=== PATIENT | female | born 1945 | race Caucasian/White ===

== ENCOUNTER → 2017-05-05 | Outpatient (CLI) | payer OTHER ==
--- NOTE | 2017-05-06 14:12 | MAMMOGRAPHY REPORT ---
BILATERAL DIGITAL SCREENING MAMMOGRAM WITH CAD: 05/05/2017 CLINICAL HISTORY: Routine screening. TECHNIQUE: Current study was also evaluated with a Computer Aided Detection (CAD) system. Bilateral CC and MLO views were obtained. COMPARISON: Comparison is made to exams dated: 04/29/2016 mammogram, 04/25/2015 mammogram, 04/24/2014 m ammogram, 04/23/2013 mammogram, 04/20/2012 mammogram, and 04/19/2011 mammogram - [facility] enter. BREAST COMPOSITION: The tissue of both breasts is heterogeneously dense, which may obscure small mas ses. FINDINGS: No suspicious masses, calcifications, or areas of architectural distortion are noted in ei ther breast. There has been no significant interval change compared to prior exams. Bilateral asymme tries and scattered bilateral benign-appearing calcifications are not significantly changed. IMPRESSION: ACR BI-RADS CATEGORY 2: BENIGN There is no mammographic evidence of malignancy. A 1 year screening mammogram is recommended. The pa tient will receive written notification of the results. Approximately 10% of breast cancers are not detected with mammography. A negative mammographic report should not delay biopsy if a clinically suggestive mass is present. Damari Alaniz M.D. /:05/05/2017 16:17:22 [employer] Member: Aly NATH(Era)(M), [facility] letter sent: Normal 1/2 BI-RADS Code: ACR BI-RADS Category 2: Benign
== END | disposition home or self-care (01) ==
LOC: C.MAMM 12:16
PROVIDERS: ATTEND Family Medicine
DX: Z12.31 Encounter for screening mammogram for malignant neoplasm of breast (principal)

== ENCOUNTER 2020-10-17 11:02 | Inpatient (IN) ==
--- NOTE | 2020-10-17 12:02 | XRay Report ---
XR chest 1V portable CLINICAL HISTORY: hypotension COMPARISON STUDY: No previous studies for comparison. FINDINGS: The heart is at the upper limits of normal in size. There are patchy bibasilar interstitial opacities. These can be atelectatic or cash posting representative of pneumonia. Clinical and radiographic follow -up is recommended. There is no failure. There are no pleural effusions[ IMPRESSION: Nonspecific bibasilar interstitial opacities, atelectatic versus multifocal pneumonia. Cl inical and radiographic follow-up recommended. ACT 112: Negative or not required by law. Electronically signed by: Juan Malik M.D. 10/17/2020 12:00 PM
[2020-10-17 12:08] LABS: White Blood Count 4.88 K/uL (4.8-10.8)
[2020-10-17 12:21] LABS: INR 1.2 (0.9-1.1); Partial Thromboplastin Ratio 1.1; Prothrombin Time 11.7 Seconds (9.0-12.0)
[2020-10-17 12:27] LABS: Albumin Level 3.6 gm/dl (3.4-5.0); BUN Creatinine Ratio 34.2 (10-20); Calcium 8.5 mg/dl (8.5-10.1); Creatinine Clr Calc Pharmacy 37.1 ml/min; Est GFR (African American) 39.3; Est GFR (Non-African American) 33.9
[2020-10-17 12:29] LABS: Albumin Globulin Ratio 0.9 (0.9-2); Bilirubin,Total 0.8 mg/dl (0.2-1); Total Protein 7.6 gm/dl (6.4-8.2)
[2020-10-17] MEDS ORDERED: SODIUM CHLORIDE 0.9% 500 ML IV ONE (12:41)
[2020-10-17 13:24] LABS: Basophils # (auto) 0.01 K/uL (0-0.2); Basophils % (auto) 0.2 %; Hematocrit (blood only) 40.7 % (37-47); Hemoglobin 14.3 g/dL (12.0-16.0); Immature Granulocytes # (auto) 0.03 K/uL (0.00-0.02); Immature Granulocytes % (auto) 0.6 %; Lymphocytes # (auto) 0.87 K/uL (1.2-3.4); Lymphocytes % (auto) 17.8 %; Mean Corpuscular Hemoglobin 32.4 pg (25-34); Mean Corpuscular Hgb Conc 35.1 g/dL (32-36); Mean Corpuscular Volume 92.1 fL (80-100); Mean Platelet Volume 11.5 fL (7.4-10.4); Monocytes # (auto) 0.42 K/uL (0.11-0.59); Monocytes % (auto) 8.6 %; Neutrophils # (auto) 3.55 K/uL (1.4-6.5); Neutrophils % (auto) 72.8 %; Platelet Count 140 K/uL (130-400); RDW Coefficient of Variation 13.4 % (11.5-14.5); RDW Standard Deviation 45.5 fL (36.4-46.3); Red Blood Count 4.42 M/uL (4.2-5.4)
[2020-10-17] MEDS: SODIUM CHLORIDE 0.9% 1000ML 1,000 ML IV SCH ×2 (13:59→19:38)
[2020-10-17 14:34] LABS: Influenza A virus by PCR Negative (Neg); Influenza B virus by PCR Negative (Neg); RSV by PCR Negative (Neg)
[2020-10-17 14:46] LABS: SARS CoV2 RNA(COVID-19) InHosp POSITIVE (Negative)
[2020-10-17 14:56] LABS: Appearance Urine Clear (Clear); Bacteria Urine Automated 4+ (Negative); Bilirubin Urine Negative (Negative); Blood Urine Negative (Negative); Color Urine Yellow; Epithelial Cell Urine Auto 20-30 /lpf (0-5); Glucose Urine UA 3+ (Negative); Ketones Urine Trace (Negative); Leukocyte Esterase Urine Negative (Negative); Nitrite Urine Positive (Negative); Protein Urine Negative (Negative); RBC Urine Automated 0-4 /hpf (0-4); Specific Gravity Urine 1.023 (1.000-1.030); Urobilinogen Urine Negative (Negative)
--- NOTE | 2020-10-17 16:05 | Electrocardiogram Report ---
Test Reason : Blood Pressure : / mmHG Vent. Rate : 096 BPM Atrial Rate : 096 BPM P-R Int : 134 ms QRS Dur : 074 ms QT Int : 334 ms P-R-T Axes : 005 -29 026 degrees QTc Int : 421 ms Normal sinus rhythm Normal ECG No previous ECGs available Confirmed by Max Mack ([id number]) on 10/17/2020 4:05:21 PM Referred By: Confirmed By:Richmond Mack
[2020-10-17] MEDS ORDERED: cefTRIAXone SODIUM 2,000 MG/70 ML BAG IV STA (17:09)
--- NOTE | 2020-10-17 18:16 | History & Physical Report ---
Date of Service October 17, 2020 Assessment & Plan (1) Hypotension: Suspect due to dehydration related to limited oral intake and diarrhea and is complicated by possible UTI - Will continue IVF started in ED - NSS at 100 ml/hr -Blood pressure seems to be improving -No significant diarrhea as of today -We will provide diet as tolerated (2) SHRADDHA (acute kidney injury): Suspect related to dehydration - see #1. Baseline creatinine around 1 - creatinine today 1.5 - Continue intravenous hydration and was advised to drink more fluid - Follow PRP (3) COVID-19: Suspect COVID as cause of symptoms for past week - not currently hypoxic -Presented with GI symptoms and did not have any cough and/or shortness of breath - Checking D-dimer - consider CT chest if elevated -Saturating normally on room air and does not have any significant chest findings on examination -Does not qualify for any remdesivir and/or dexamethasone (4) Type 2 diabetes mellitus: - Hold oral diabetic agents - Insulin sliding scale - Diabetic diet - Last A1c in Jun was 7.1 - Accuchecks ACHS (5) Essential hypertension: Hold anti-hypertensives until BP improves with rehydration (6) Dyslipidemia: - Continue atorvastatin Jay Mendoza PA-C Physical exam and assessment and plan was updated Agree with assessment and plan as outlined above by KRISTY Chavez Dr History of Present Illness Chief Complaint: Dizziness and weakness Primary Care Provider: Сергей Mcdowell DO This is a 75 y/o female with a PMH of DM2, HTN, dyslipidemia and obesity who presents to the ED today via EMS after she was found to be hypotensive and tachycardic at her PCP office. She presented to her PCP office today with progressive weakness over the past week with associated loss of appetite. Limited solid food intake but has been drinking water. Associated dizziness and unsteadiness. She has also been having diarrhea twice a day with some abdominal discomfort and nausea. No significant respiratory symptoms. She did have her first COVID vaccine on 10/07/20. In the PCP office, she was found to be hypotensive with a BP of 71/42 and HR of 112 with a UA positive for nitrites so she was referred to the ED for possible urosepsis. Allergies Allergy/AdvReac Type Severity Reaction Status Date / Time No Known Allergies Allergy Verified 10/17/20 13:30 Home Medications Medication Instructions Recorded Confirmed Type C,E,zinc,copper [id number] 1 cap PO DAILY 10/17/20 10/17/20 History [Ocuvite Adult 50 Plus] aspirin [Aspirin Low Dose] 81 mg PO DAILY 10/17/20 10/17/20 History atenolol 25 mg PO DAILY 10/17/20 10/17/20 History atorvastatin 80 mg PO DAILY 10/17/20 10/17/20 History cyanocobalamin (vitamin B-12) 1,000 mcg PO DAILY 10/17/20 10/17/20 History empagliflozin [Jardiance] 25 mg PO DAILY 10/17/20 10/17/20 History ergocalciferol (vitamin D2) 1,000 unit PO DAILY 10/17/20 10/17/20 History [Vitamin D2] lisinopril-hydrochlorothiazide 1 tab PO DAILY 10/17/20 10/17/20 History metformin 1,000 mg PO BID 10/17/20 10/17/20 History Past Med/Surg History Medical History (Updated 10/17/20 @ 18:18 by Lori Mendoza PA-C) Dyslipidemia Essential hypertension Type 2 diabetes mellitus Surgical History (Updated 10/17/20 @ 17:22 by Lori Mendoza PA-C) History of History of tubal ligation Review of Systems Review of Systems: All systems reviewed & are unremarkable except as noted in HPI & below Physical Exam Physical Exam: Lying in bed comfortably Constitutional: well developed and well nourished; not ill appearing Eyes: PERRL, conjunctivae normal, anicteric sclerae ENMT: external ear and nose normal, oropharynx normal Neck: trachea midline, no thyromegaly Respiratory: no respiratory distress Auscultation: lungs clear to auscultation bilaterally and + diminished lung sounds (Lower lung garcia) Cardiovascular: Rate/Rhythm: regular rate and regular rhythm Heart Sounds: no murmur Extremities: + edema (Trace edema on right side) Gastrointestinal (Abdomen): Inspection/Auscultation: normal bowel sounds; abdomen not distended Percussion/Palpation: + abdomen tender (Minimally tender epigastrium) and abdomen soft Musculoskeletal: No acute arthritis in any joint Neurologic: Alert, awake and oriented x3. Generally weak but no focal weakness Lymphatic: no cervical or axillary lymphadenopathy Results & Data Results & Data ([facility]) Vital Signs (Past 12 Hours) Vital Signs Temp Pulse Resp BP Pulse Ox 10/17/20 17:34 91 H 18 115/72 97 10/17/20 17:30 90 18 96 10/17/20 17:00 93 H 20 97 10/17/20 16:30 91 H 18 97 10/17/20 16:00 87 15 95 10/17/20 15:30 92 H 17 95 10/17/20 15:00 88 19 95 10/17/20 14:30 88 22 95 10/17/20 14:08 96 H 30 H 88 L 10/17/20 13:30 84 18 96 10/17/20 13:00 88 17 95 10/17/20 12:30 88 23 94 10/17/20 12:00 92 H 24 93 10/17/20 11:44 91 H 30 H 94 10/17/20 11:09 37 C 95 H 20 91 10/17/20 11:06 91 H 30 H 115/72 95 Laboratory Results Laboratory Results - last 24 hr 10/17/20 10/17/20 10/17/20 11:50 11:50 11:50 WBC 4.88 RBC 4.42 Hgb 14.3 Hct 40.7 MCV 92.1 MCH 32.4 MCHC 35.1 RDW Std Deviation 45.5 RDW Coeff of Phil 13.4 Plt Count 140 MPV 11.5 H Immature Gran % (Auto) 0.6 Neut % (Auto) 72.8 Lymph % (Auto) 17.8 Bacon % (Auto) 8.6 Eos % (Auto) 0.0 Baso % (Auto) 0.2 Neut # (Auto) 3.55 Lymph # (Auto) 0.87 L Bacon # (Auto) 0.42 Eos # (Auto) 0.00 Baso # (Auto) 0.01 Immature Gran # (Auto) 0.03 H PT 11.7 INR 1.2 H APTT 28.0 PTT Ratio 1.1 Sodium 135 L Potassium 4.0 Chloride 104 Carbon Dioxide 25 Anion Gap 6.0 BUN 52 H Creatinine 1.51 H Est Cr Clr Drug Dosing 37.1 Est GFR ( Amer) 39.3 Est GFR (Non-Af Amer) 33.9 BUN/Creatinine Ratio 34.2 H Glucose 143 H Lactate Calcium 8.5 Total Bilirubin 0.8 AST 71 H ALT 65 Alkaline Phosphatase 56 Total Protein 7.6 Albumin 3.6 Globulin 4.0 Albumin/Globulin Ratio 0.9 Urine Color Urine Appearance Urine pH Ur Specific [place] Urine Protein Urine Glucose (UA) Urine Ketones Urine Blood Urine Nitrite Urine Bilirubin Urine Urobilinogen Ur Leukocyte Esterase Urine WBC (Auto) Urine RBC (Auto) U Hyaline Cast (Auto) U Epithel Cells (Auto) Urine Bacteria (Auto) COVID-19 Eval Order SARS-CoV-2 (PCR) Influenza Type A (PCR) Influenza Type B (PCR) RSV (RT-PCR) 10/17/20 10/17/20 10/17/20 13:21 13:33 13:33 WBC RBC Hgb Hct MCV MCH MCHC RDW Std Deviation RDW Coeff of Phil Plt Count MPV Immature Gran % (Auto) Neut % (Auto) Lymph % (Auto) Bacon % (Auto) Eos % (Auto) Baso % (Auto) Neut # (Auto) Lymph # (Auto) Bacon # (Auto) Eos # (Auto) Baso # (Auto) Immature Gran # (Auto) PT INR APTT PTT Ratio Sodium Potassium Chloride Carbon Dioxide Anion Gap BUN Creatinine Est Cr Clr Drug Dosing Est GFR ( Amer) Est GFR (Non-Af Amer) BUN/Creatinine Ratio Glucose Lactate 1.4 Calcium Total Bilirubin AST ALT Alkaline Phosphatase Total Protein Albumin Globulin Albumin/Globulin Ratio Urine Color Urine Appearance Urine pH Ur Specific [place] Urine Protein Urine Glucose (UA) Urine Ketones Urine Blood Urine Nitrite Urine Bilirubin Urine Urobilinogen Ur Leukocyte Esterase Urine WBC (Auto) Urine RBC (Auto) U Hyaline Cast (Auto) U Epithel Cells (Auto) Urine Bacteria (Auto) COVID-19 Eval Order CovFluRsv at [facility] SARS-CoV-2 (PCR) POSITIVE A* Influenza Type A (PCR) Negative Influenza Type B (PCR) Negative RSV (RT-PCR) Negative 10/17/20 14:11 WBC RBC Hgb Hct MCV MCH MCHC RDW Std Deviation RDW Coeff of Phil Plt Count MPV Immature Gran % (Auto) Neut % (Auto) Lymph % (Auto) Bacon % (Auto) Eos % (Auto) Baso % (Auto) Neut # (Auto) Lymph # (Auto) Bacon # (Auto) Eos # (Auto) Baso # (Auto) Immature Gran # (Auto) PT INR APTT PTT Ratio Sodium Potassium Chloride Carbon Dioxide Anion Gap BUN Creatinine Est Cr Clr Drug Dosing Est GFR ( Amer) Est GFR (Non-Af Amer) BUN/Creatinine Ratio Glucose Lactate Calcium Total Bilirubin AST ALT Alkaline Phosphatase Total Protein Albumin Globulin Albumin/Globulin Ratio Urine Color Yellow Urine Appearance Clear Urine pH 5.0 Ur Specific [place] 1.023 Urine Protein Negative Urine Glucose (UA) 3+ H Urine Ketones Trace H Urine Blood Negative Urine Nitrite Positive A Urine Bilirubin Negative Urine Urobilinogen Negative Ur Leukocyte Esterase Negative Urine WBC (Auto) 1-5 Urine RBC (Auto) 0-4 U Hyaline Cast (Auto) 1-5 U Epithel Cells (Auto) 20-30 H Urine Bacteria (Auto) 4+ H COVID-19 Eval Order SARS-CoV-2 (PCR) Influenza Type A (PCR) Influenza Type B (PCR) RSV (RT-PCR) Diagnostic Findings Chest X-ray 10/17/20 - IMPRESSION: Nonspecific bibasilar interstitial opacities, atelectatic versus multifocal pneumonia. Clinical and radiographic follow-up recommended. Medications Administered Sodium Chloride (Nss 1000ml) 1,000 mls @ 100 mls/hr IV .Q10H NANCY Stop: 11/16/20 12:44 Last Admin: 10/17/20 13:59 Dose: 200 mls/hr Documented by: [id number] Discontinued Medications Sodium Chloride (Nss) 500 mls @ 999 mls/hr IV .Q31M ONE Stop: 10/17/20 13:11 Last Infusion: 10/17/20 13:59 Dose: 0 mls/hr Documented by: [id number] Admin: 10/17/20 13:23 Dose: 999 mls/hr Documented by: [id number] Ceftriaxone Sodium (Rocephin) 2,000 mg in 70 mls @ 140 mls/hr IV NOW STA Stop: 10/17/20 17:38 Last Admin: 10/17/20 17:48 Dose: 140 mls/hr Documented by: [id number] Code Status & VTE Plan VTE Prophylaxis Plan VTE Prophylaxis will be ordered: Yes
[2020-10-17 20:16] LABS: D Dimer 690 ug/L FEU (0-500)
[2020-10-17] MEDS ORDERED: CARBOHYDRATES FOR HYPOGLYCEMIA PO PRN (20:35)
[2020-10-17] MEDS ORDERED: ACETAMINOPHEN 325 MG TAB PO PRN (20:35)
[2020-10-17] MEDS ORDERED: DEXTROSE 50% 50 ML SYRINGE IV PRN (20:35)
[2020-10-17] MEDS ORDERED: GLUCOSE 40% GEL 15 GM TUBE PO PRN (20:35)
[2020-10-17] MEDS ORDERED: GLUCAGON FOR INJ 1 MG VIAL SQ PRN (20:35)
[2020-10-17] MEDS ORDERED: GLUCOSE 10 TABS/TUBE PO PRN (20:35)
--- NOTE | 2020-10-17 21:32 | Emergency Department Note ---
Impression & Plan Hypotension, COVID-19, Acute UTI ED Provider Note NAME: MAYTE FINK AGE: 75 SEX: F ARRIVES VIA: Ambulance INFORMANT: ED PROVIDER(S): Andie Gutierrez MD CHIEF COMPLAINT: weakness, UTI, low blood pressure PLAN: Disposition: Admission Condition: Fair Referral: Hospitalist MEDICAL DECISION MAKING: This pt was evaluated and appeared to be in no distress. IV access was obtained and lab work was drawn. PT was placed on the managing principal and pt was noted to be in a NSR at 92 bpm. Pt was hydrated with NSS. Blood cx and a lactate were performed. Records from outpt office indicate pt has + urine dip. UA is indicative of infection in ED as well. IV ceftriaxone was administered. WBC is normal at 4.88, creat is elevated at 1.51 and BUN at 52, indicating a prerenal state. Pt was tested for COVID and positive. Pt's case was d/w the hospitalist service for admission and further management. Triage Nursing notes reviewed. Prior medical records reviewed [facility] [address] Vital Signs: reviewed and remarkable for hypotension, mild tachycardia Differential diagnosis: Infection, dehydration, metabolic abnormality, hypo/hyperglycemia, electrolyte disturbance, anemia, hypoxia, cardiac sources, intracerebral event, toxicologic, neurologic, as well as other pathologies. ER treatment provided: IV NSS IV ceftriaxone Diagnostics interpreted by me: ECG: NSR at 96 bpm normal QTC 421, no ST changes, no PVC, no PAC. Cardiac Monitoring: an order for cardiac monitoring was placed and pt was noted to be in a NSR at 92 bpm. Laboratory studies: See below Imaging studies: XR chest 1V portable CLINICAL HISTORY: hypotension COMPARISON STUDY: No previous studies for comparison. FINDINGS: The heart is at the upper limits of normal in size. There are patchy bibasilar interstitial opacities. These can be atelectatic or mortician supplies sales representative of pneumonia. Clinical and radiographic follow-up is recommended. There is no failure. There are no pleural effusions[ IMPRESSION: Nonspecific bibasilar interstitial opacities, atelectatic versus multifocal pneumonia. Clinical and radiographic follow-up recommended. ACT 112: Negative or not required by law. Electronically signed by: Juan Malik M.D. 10/17/2020 12:00 PM Consultation(s): hospitalist HPI: 75/F arrives for evaluation of weakness. Pt states she has been feeling unwell for a few weeks but lately lost her appetite. She has been drinking w ater though. She is fatigued. She presented to her doctor's office today for evaluation and was noted to be tachycardic and hypotensive. Urine dip was positive for infection and pt was referred to the ED by EMS. She denies V/D, CP and SOB. ROS: See above HPI for pertinent positives & negatives. A total of 10 systems reviewed and were otherwise negative. PAST MEDICAL HISTORY:See Below PAST SURGICAL HISTORY:See Below FAMILY HISTORY:See Below SOCIAL HISTORY:See Below HOME MEDICATIONS:See Below ALLERGIES:See Below VITALS:See Below PHYSICAL EXAMINATION: Vital signs reviewed. Noted to be hypotensive and slightly tachycardic. General: Elderly generally well appearing 75 yo female, in no significant distress. HEENT: No scleral icterus, PERRLA, neck supple. Cardiovascular: Regular rate and rhythm, no extra sounds. Pulmonary: Clear to auscultation bilaterally, normal work of breathing. Abdomen: Soft, nontender, nondistended, positive bowel sounds. Musculoskeletal: Atraumatic, no peripheral edema. Neurologic: Patient awake alert and oriented x 3 Skin: Warm, dry, no rash Andie Gutierrez MD Past Med/Surg History Medical History (Updated 10/20/20 @ 10:41 by Andie Gutierrez MD) Dyslipidemia Essential hypertension Type 2 diabetes mellitus Surgical History History of History of tubal ligation Social History Smoking Status: Never smoker Hx Alcohol Use: Yes Hx Substance Use: No Preferred Language: Samoan Communication Ability: Effective Beliefs That Will Affect Care: None Current Living Situation: Alone Feels Safe at Home: Yes Assistive Devices: Glasses Assistive Devices Comment: partial Allergies Allergies Allergy/AdvReac Type Severity Reaction Status Date / Time No Known Allergies Allergy Verified 10/17/20 13:30 Home Meds Home Medications Medication Instructions Recorded Confirmed Jardiance 25 mg PO DAILY 10/17/20 10/17/20 Ocuvite Adult 50 Plus 1 cap PO DAILY 10/17/20 10/17/20 aspirin [Aspirin Low Dose] 81 mg PO DAILY 10/17/20 10/17/20 atorvastatin 80 mg PO DAILY 10/17/20 10/17/20 cyanocobalamin (vitamin B-12) 1,000 mcg PO DAILY 10/17/20 10/17/20 ergocalciferol (vitamin D2) 1,000 unit PO DAILY 10/17/20 10/17/20 metformin 1,000 mg PO BID 10/17/20 10/17/20 Results & Data (ED) Vital Signs Vital Signs - 24 hr 10/17/20 11:06 10/17/20 11:09 10/17/20 11:44 Temperature 37 C Temperature Source Oral Pulse Rate 91 H 95 H 91 H Pulse Rate from SpO2 Sensor 91 H 91 H Pulse Rhythm Regular Pulse Strength Normal Respiratory Rate 30 H 20 30 H Respiratory Effort / Characteristics Non-Labored Respiratory Depth Normal Respiratory Pattern Regular Blood Pressure 115/72 Blood Pressure Mean 86 Pulse Oximetry 95 91 94 Oxygen Delivery Method Room Air Oxygen Flow Rate Sepsis Recent Fever Within 48 Hours No Sepsis New/Unexplained Change in Mental Status N/A Sepsis Action Taken by Nursing No Action Required 10/17/20 12:00 10/17/20 12:30 10/17/20 13:00 Temperature Temperature Source Pulse Rate 92 H 88 88 Pulse Rate from SpO2 Sensor 92 H 89 87 Pulse Rhythm Pulse Strength Respiratory Rate 24 23 17 Respiratory Effort / Characteristics Respiratory Depth Respiratory Pattern Blood Pressure Blood Pressure Mean Pulse Oximetry 93 94 95 Oxygen Delivery Method Oxygen Flow Rate Sepsis Recent Fever Within 48 Hours Sepsis New/Unexplained Change in Mental Status Sepsis Action Taken by Nursing 10/17/20 13:30 10/17/20 14:08 10/17/20 14:30 Temperature Temperature Source Pulse Rate 84 96 H 88 Pulse Rate from SpO2 Sensor 85 95 H 88 Pulse Rhythm Pulse Strength Respiratory Rate 18 30 H 22 Respiratory Effort / Characteristics Respiratory Depth Respiratory Pattern Blood Pressure Blood Pressure Mean Pulse Oximetry 96 88 L 95 Oxygen Delivery Method Room Air Nasal Cannula Oxygen Flow Rate 2 Sepsis Recent Fever Within 48 Hours Sepsis New/Unexplained Change in Mental Status Sepsis Action Taken by Nursing 10/17/20 15:00 10/17/20 15:30 10/17/20 16:00 Temperature Temperature Source Pulse Rate 88 92 H 87 Pulse Rate from SpO2 Sensor 88 92 H 87 Pulse Rhythm Pulse Strength Respiratory Rate 19 17 15 Respiratory Effort / Characteristics Respiratory Depth Respiratory Pattern Blood Pressure Blood Pressure Mean Pulse Oximetry 95 95 95 Oxygen Delivery Method Oxygen Flow Rate Sepsis Recent Fever Within 48 Hours Sepsis New/Unexplained Change in Mental Status Sepsis Action Taken by Nursing 10/17/20 16:30 10/17/20 17:00 10/17/20 17:30 Temperature Temperature Source Pulse Rate 91 H 93 H 90 Pulse Rate from SpO2 Sensor 91 H 93 H 90 Pulse Rhythm Pulse Strength Respiratory Rate 18 20 18 Respiratory Effort / Characteristics Respiratory Depth Respiratory Pattern Blood Pressure Blood Pressure Mean Pulse Oximetry 97 97 96 Oxygen Delivery Method Oxygen Flow Rate Sepsis Recent Fever Within 48 Hours Sepsis New/Unexplained Change in Mental Status Sepsis Action Taken by Nursing 10/17/20 17:34 Temperature Temperature Source Pulse Rate 91 H Pulse Rate from SpO2 Sensor 92 H Pulse Rhythm Pulse Strength Respiratory Rate 18 Respiratory Effort / Characteristics Respiratory Depth Respiratory Pattern Blood Pressure 115/72 Blood Pressure Mean 86 Pulse Oximetry 97 Oxygen Delivery Method Oxygen Flow Rate Sepsis Recent Fever Within 48 Hours Sepsis New/Unexplained Change in Mental Status Sepsis Action Taken by Usp Medications Current Medication List: was personally reviewed by me Laboratory Data Attestation: I reviewed the patient's lab results. Result diagrams: 10/18/20 06:01 10/18/20 06:01 Lab Results 10/17/20 10/17/20 10/17/20 Range/Units 11:50 11:50 11:50 WBC 4.88 (4.8-10.8) K/uL RBC 4.42 (4.2-5.4) M/uL Hgb 14.3 (12.0-16.0) g/dL Hct 40.7 (37-47) % MCV 92.1 (80-100) fL MCH 32.4 (25-34) pg MCHC 35.1 (32-36) g/dL RDW Std Deviation 45.5 (36.4-46.3) fL RDW Coeff of Phil 13.4 (11.5-14.5) % Plt Count 140 (130-400) K/uL MPV 11.5 H (7.4-10.4) fL Immature Gran % (Auto) 0.6 % Neut % (Auto) 72.8 % Lymph % (Auto) 17.8 % [place] % (Auto) 8.6 % Eos % (Auto) 0.0 % Baso % (Auto) 0.2 % Neut # (Auto) 3.55 (1.4-6.5) K/uL Lymph # (Auto) 0.87 L (1.2-3.4) K/uL [place] # (Auto) 0.42 (0.11-0.59) K/uL Eos # (Auto) 0.00 (0-0.5) K/uL Baso # (Auto) 0.01 (0-0.2) K/uL Immature Gran # (Auto) 0.03 H (0.00-0.02) K/uL PT 11.7 (9.0-12.0) Seconds INR 1.2 H (0.9-1.1) APTT 28.0 (21.0-31.0) Seconds PTT Ratio 1.1 Sodium 135 L (136-145) mmol/L Potassium 4.0 (3.5-5.1) mmol/L Chloride 104 (98-107) mmol/L Carbon Dioxide 25 (21-32) mmol/L Anion Gap 6.0 (3-11) BUN 52 H (7-18) mg/dl Creatinine 1.51 H (0.6-1.2) mg/dl Est Cr Clr Drug Dosing 37.1 ml/min Est GFR ( Amer) 39.3 Est GFR (Non-Af Amer) 33.9 BUN/Creatinine Ratio 34.2 H (10-20) Glucose 143 H (70-99) mg/dl Lactate (0.4-2.0) mmol/L Calcium 8.5 (8.5-10.1) mg/dl Total Bilirubin 0.8 (0.2-1) mg/dl AST 71 H (15-37) U/L ALT 65 (12-78) U/L Alkaline Phosphatase 56 (45-117) U/L C-Reactive Protein (0-0.29) mg/dl Total Protein 7.6 (6.4-8.2) gm/dl Albumin 3.6 (3.4-5.0) gm/dl Globulin 4.0 (2.5-4.0) gm/dl Albumin/Globulin Ratio 0.9 (0.9-2) Urine Color Urine Appearance (Clear) Urine pH (4.5-7.5) Ur Specific [place] (1.000-1.030) Urine Protein (Negative) Urine Glucose (UA) (Negative) Urine Ketones (Negative) Urine Blood (Negative) Urine Nitrite (Negative) Urine Bilirubin (Negative) Urine Urobilinogen (Negative) Ur Leukocyte Esterase (Negative) Urine WBC (Auto) (0-5) /hpf Urine RBC (Auto) (0-4) /hpf U Hyaline Cast (Auto) (0-5) /lpf U Epithel Cells (Auto) (0-5) /lpf Urine Bacteria (Auto) (Negative) COVID-19 Eval Order SARS-CoV-2 (PCR) (Negative) Influenza Type A (PCR) (Neg) Influenza Type B (PCR) (Neg) RSV (RT-PCR) (Neg) 10/17/20 10/17/20 10/17/20 Range/Units 11:50 13:21 13:33 WBC (4.8-10.8) K/uL RBC (4.2-5.4) M/uL Hgb (12.0-16.0) g/dL Hct (37-47) % MCV (80-100) fL MCH (25-34) pg MCHC (32-36) g/dL RDW Std Deviation (36.4-46.3) fL RDW Coeff of Phil (11.5-14.5) % Plt Count (130-400) K/uL MPV (7.4-10.4) fL Immature Gran % (Auto) % Neut % (Auto) % Lymph % (Auto) % [place] % (Auto) % Eos % (Auto) % Baso % (Auto) % Neut # (Auto) (1.4-6.5) K/uL Lymph # (Auto) (1.2-3.4) K/uL [place] # (Auto) (0.11-0.59) K/uL Eos # (Auto) (0-0.5) K/uL Baso # (Auto) (0-0.2) K/uL Immature Gran # (Auto) (0.00-0.02) K/uL PT (9.0-12.0) Seconds INR (0.9-1.1) APTT (21.0-31.0) Seconds PTT Ratio Sodium (136-145) mmol/L Potassium (3.5-5.1) mmol/L Chloride (98-107) mmol/L Carbon Dioxide (21-32) mmol/L Anion Gap (3-11) BUN (7-18) mg/dl Creatinine (0.6-1.2) mg/dl Est Cr Clr Drug Dosing ml/min Est GFR ( Amer) Est GFR (Non-Af Amer) BUN/Creatinine Ratio (10-20) Glucose (70-99) mg/dl Lactate 1.4 (0.4-2.0) mmol/L Calcium (8.5-10.1) mg/dl Total Bilirubin (0.2-1) mg/dl AST (15-37) U/L ALT (12-78) U/L Alkaline Phosphatase (45-117) U/L C-Reactive Protein 1.29 H (0-0.29) mg/dl Total Protein (6.4-8.2) gm/dl Albumin (3.4-5.0) gm/dl Globulin (2.5-4.0) gm/dl Albumin/Globulin Ratio (0.9-2) Urine Color Urine Appearance (Clear) Urine pH (4.5-7.5) Ur Specific [place] (1.000-1.030) Urine Protein (Negative) Urine Glucose (UA) (Negative) Urine Ketones (Negative) Urine Blood (Negative) Urine Nitrite (Negative) Urine Bilirubin (Negative) Urine Urobilinogen (Negative) Ur Leukocyte Esterase (Negative) Urine WBC (Auto) (0-5) /hpf Urine RBC (Auto) (0-4) /hpf U Hyaline Cast (Auto) (0-5) /lpf U Epithel Cells (Auto) (0-5) /lpf Urine Bacteria (Auto) (Negative) COVID-19 Eval Order CovFluRsv at [facility] SARS-CoV-2 (PCR) (Negative) Influenza Type A (PCR) (Neg) Influenza Type B (PCR) (Neg) RSV (RT-PCR) (Neg) 10/17/20 10/17/20 Range/Units 13:33 14:11 WBC (4.8-10.8) K/uL RBC (4.2-5.4) M/uL Hgb (12.0-16.0) g/dL Hct (37-47) % MCV (80-100) fL MCH (25-34) pg MCHC (32-36) g/dL RDW Std Deviation (36.4-46.3) fL RDW Coeff of Hpil (11.5-14.5) % Plt Count (130-400) K/uL MPV (7.4-10.4) fL Immature Gran % (Auto) % Neut % (Auto) % Lymph % (Auto) % [place] % (Auto) % Eos % (Auto) % Baso % (Auto) % Neut # (Auto) (1.4-6.5) K/uL Lymph # (Auto) (1.2-3.4) K/uL [place] # (Auto) (0.11-0.59) K/uL Eos # (Auto) (0-0.5) K/uL Baso # (Auto) (0-0.2) K/uL Immature Gran # (Auto) (0.00-0.02) K/uL PT (9.0-12.0) Seconds INR (0.9-1.1) APTT (21.0-31.0) Seconds PTT Ratio Sodium (136-145) mmol/L Potassium (3.5-5.1) mmol/L Chloride (98-107) mmol/L Carbon Dioxide (21-32) mmol/L Anion Gap (3-11) BUN (7-18) mg/dl Creatinine (0.6-1.2) mg/dl Est Cr Clr Drug Dosing ml/min Est GFR ( Amer) Est GFR (Non-Af Amer) BUN/Creatinine Ratio (10-20) Glucose (70-99) mg/dl Lactate (0.4-2.0) mmol/L Calcium (8.5-10.1) mg/dl Total Bilirubin (0.2-1) mg/dl AST (15-37) U/L ALT (12-78) U/L Alkaline Phosphatase (45-117) U/L C-Reactive Protein (0-0.29) mg/dl Total Protein (6.4-8.2) gm/dl Albumin (3.4-5.0) gm/dl Globulin (2.5-4.0) gm/dl Albumin/Globulin Ratio (0.9-2) Urine Color Yellow Urine Appearance Clear (Clear) Urine pH 5.0 (4.5-7.5) Ur Specific [place] 1.023 (1.000-1.030) Urine Protein Negative (Negative) Urine Glucose (UA) 3+ H (Negative) Urine Ketones Trace H (Negative) Urine Blood Negative (Negative) Urine Nitrite Positive A (Negative) Urine Bilirubin Negative (Negative) Urine Urobilinogen Negative (Negative) Ur Leukocyte Esterase Negative (Negative) Urine WBC (Auto) 1-5 (0-5) /hpf Urine RBC (Auto) 0-4 (0-4) /hpf U Hyaline Cast (Auto) 1-5 (0-5) /lpf U Epithel Cells (Auto) 20-30 H (0-5) /lpf Urine Bacteria (Auto) 4+ H (Negative) COVID-19 Eval Order SARS-CoV-2 (PCR) POSITIVE A* (Negative) Influenza Type A (PCR) Negative (Neg) Influenza Type B (PCR) Negative (Neg) RSV (RT-PCR) Negative (Neg) Administered Medications Discontinued Medications Acetaminophen (Acetaminophen 325 Mg Tab) 650 mg PO Q4H PRN PRN Reason: Pain or Fever Stop: 11/16/20 20:34 Last Admin: 10/18/20 04:33 Dose: 650 mg Documented by: [id number] Aspirin (Aspirin 81 Mg Ectab) 81 mg PO DAILY NANCY Stop: 11/17/20 08:59 Last Admin: 10/18/20 07:56 Dose: 81 mg Documented by: [id number] Atorvastatin Calcium (Atorvastatin 40 Mg Tab) 80 mg PO DAILY NANCY Stop: 11/17/20 08:59 Last Admin: 10/18/20 07:57 Dose: 80 mg Documented by: [id number] Enoxaparin Sodium (Enoxaparin Inj 40 Mg/0.4 Ml Syr) 40 mg SQ Q12H NANCY Stop: 11/16/20 20:59 Last Admin: 10/18/20 07:57 Dose: 40 mg Documented by: [id number] Admin: 10/17/20 22:18 Dose: Not Given Documented by: [id number] Sodium Chloride (Nss) 500 mls @ 999 mls/hr IV .Q31M ONE Stop: 10/17/20 13:11 Last Infusion: 10/17/20 13:59 Dose: 0 mls/hr Documented by: [id number] Admin: 10/17/20 13:23 Dose: 999 mls/hr Documented by: [id number] Sodium Chloride (Nss 1000ml) 1,000 mls @ 100 mls/hr IV .Q10H NANCY Stop: 11/16/20 12:44 Last Infusion: 10/18/20 11:03 Dose: 0 mls/hr Documented by: [id number] Admin: 10/18/20 07:56 Dose: 100 mls/hr Documented by: [id number] Infusion: 10/18/20 05:38 Dose: 100 mls/hr Documented by: [id number] Admin: 10/17/20 19:38 Dose: 100 mls/hr Documented by: [id number] Infusion: 10/17/20 18:59 Dose: 0 mls/hr Documented by: [id number] Admin: 10/17/20 13:59 Dose: 200 mls/hr Documented by: [id number] Ceftriaxone Sodium (Rocephin) 2,000 mg in 70 mls @ 140 mls/hr IV NOW STA Stop: 10/17/20 17:38 Last Infusion: 10/17/20 18:30 Dose: 0 mls/hr Documented by: [id number] Admin: 10/17/20 17:48 Dose: 140 mls/hr Documented by: [id number] Sodium Chloride (Nss 1000ml) 1,000 mls @ 999 mls/hr IV .Q1H1M ONE Stop: 10/18/20 09:14 Last Infusion: 10/18/20 10:07 Dose: 0 mls/hr Documented by: [id number] Admin: 10/18/20 09:06 Dose: 999 mls/hr Documented by: [id number] Insulin Aspart (Insulin Aspart 100 Units/Ml 3 Ml Pen) 0 units SC ACHS NANCY Stop: 11/16/20 20:59 Last Admin: 10/18/20 08:42 Dose: Not Given Documented by: [id number] Admin: 10/17/20 22:01 Dose: Not Given Documented by: [id number] Cosigned by: [id number] Vitamin D (Cholecalciferol 1,000 Units 25 Mcg Tab) 1,000 units PO DAILY NANCY Stop: 11/17/20 08:59 Last Admin: 10/18/20 07:57 Dose: 1,000 units Documented by: [id number] Discharge Plan Visit Data Chief Complaint: Hypotension ED Provider: Andie Gutierrez Discharge Problem: Hypotension, COVID-19, Acute UTI Patient Disposition: Admitted As Inpatient Condition: Good Discharge Instructions Interventions: ED Discharge Assessment Last Done: 10/17/20 19:47 Discharge Problem: Hypotension Qualifiers: Hypotension type: hypotension due to hypovolemia Qualified Code(s): I95.89 - Other hypotension
[2020-10-17] MEDS: INSULIN ASPART 100 UNITS/ML 3 ML PEN SC SCH (22:01)
[2020-10-17] MEDS: ENOXAPARIN INJ 40 MG/0.4 ML SYR SQ SCH (22:18)
[2020-10-18 06:18] LABS: Basophils # (auto) 0.02 K/uL (0-0.2); Basophils % (auto) 0.5 %; Hematocrit (blood only) 37.5 % (37-47); Hemoglobin 12.8 g/dL (12.0-16.0); Immature Granulocytes # (auto) 0.01 K/uL (0.00-0.02); Immature Granulocytes % (auto) 0.3 %; Lymphocytes # (auto) 1.18 K/uL (1.2-3.4); Lymphocytes % (auto) 30.1 %; Mean Corpuscular Hemoglobin 31.7 pg (25-34); Mean Corpuscular Hgb Conc 34.1 g/dL (32-36); Mean Corpuscular Volume 92.8 fL (80-100); Mean Platelet Volume 10.8 fL (7.4-10.4); Monocytes # (auto) 0.27 K/uL (0.11-0.59); Monocytes % (auto) 6.9 %; Neutrophils # (auto) 2.44 K/uL (1.4-6.5); Neutrophils % (auto) 62.2 %; Platelet Count 121 K/uL (130-400); RDW Coefficient of Variation 13.4 % (11.5-14.5); RDW Standard Deviation 45.5 fL (36.4-46.3); Red Blood Count 4.04 M/uL (4.2-5.4); White Blood Count 3.92 K/uL (4.8-10.8)
[2020-10-18 06:47] LABS: RBC Morphology Unremarkable
[2020-10-18 06:55] LABS: BUN Creatinine Ratio 36.3 (10-20); Creatinine Clr Calc Pharmacy 62.5 ml/min; Est GFR (African American) 73.5; Est GFR (Non-African American) 63.4; Magnesium 1.7 mg/dl (1.8-2.4); Phosphorus 3.2 mg/dl (2.5-4.9); Potassium 3.7 mmol/L (3.5-5.1)
[2020-10-18] MEDS: SODIUM CHLORIDE 0.9% 1000ML 1,000 ML IV SCH (07:56)
[2020-10-18] MEDS: ENOXAPARIN INJ 40 MG/0.4 ML SYR SQ SCH (07:57)
[2020-10-18] MEDS ORDERED: SODIUM CHLORIDE 0.9% 1000ML 1,000 ML IV ONE (08:14)
--- NOTE | 2020-10-18 08:16 | Discharge Summary ---
Date of Service October 18, 2020 Admission HPI Per Admitting Provider This is a 75 y/o female with a PMH of DM2, HTN, dyslipidemia and obesity who presents to the ED today via EMS after she was found to be hypotensive and tachycardic at her PCP office. She presented to her PCP office today with progressive weakness over the past week with associated loss of appetite. Limited solid food intake but has been drinking water. Associated dizziness and unsteadiness. She has also been having diarrhea twice a day with some abdominal discomfort and nausea. No significant respiratory symptoms. She did have her first COVID vaccine on 10/07/20. In the PCP office, she was found to be hypo tensive with a BP of 71/42 and HR of 112 with a UA positive for nitrites so she was referred to the ED for possible urosepsis. Admission Exam Per Admitting Provider Physical Exam: Lying in bed comfortably Constitutional: well developed and well nourished; not ill appearing Eyes: PERRL, conjunctivae normal, anicteric sclerae ENMT: external ear and nose normal, oropharynx normal Neck: trachea midline, no thyromegaly Respiratory: no respiratory distress Auscultation: lungs clear to auscultation bilaterally and + diminished lung sounds (Lower lung garcia) Cardiovascular: Rate/Rhythm: regular rate and regular rhythm Heart Sounds: no murmur Extremities: + edema (Trace edema on right side) Gastrointestinal (Abdomen): Inspection/Auscultation: normal bowel sounds; abdomen not distended Percussion/Palpation: + abdomen tender (Minimally tender epigastrium) and abdomen soft Musculoskeletal: No acute arthritis in any joint Neurologic: Alert, awake and oriented x3. Generally weak but no focal weakness Lymphatic: no cervical or axillary lymphadenopathy Principal Diagnosis (1) Hypotension: (2) SHRADDHA (acute kidney injury): (3) COVID-19: (4) Type 2 diabetes mellitus: (5) Essential hypertension: (6) Dyslipidemia: Discharge Exam See below Discharge Data Allergies Allergy/AdvReac Type Severity Reaction Status Date / Time No Known Allergies Allergy Verified 10/17/20 13:30 Consultations 10/17/20 19:50 ED Decision to Admit Stat Current Diagnoses Type 2 diabetes mellitus without complications (10/17/20) Hyperlipidemia, unspecified (10/17/20) Essential (primary) hypertension (10/17/20) Hypotension, unspecified (10/17/20) Acute kidney failure, unspecified (10/17/20) COVID-19 (10/17/20) Allergies No Known Allergies Allergy (Verified 10/17/20 13:30) Height/Weight/Isolation Height 5 ft 6 in Weight 88.7 kg Isolation Type COVID Precautions Chemistry 10/17/20 10/18/20 11:50 06:01 Sodium 135 L 138 Potassium 4.0 3.7 Chloride 104 108 H Carbon Dioxide 25 21 Anion Gap 6.0 9.0 BUN 52 H 33 H Creatinine 1.51 H 0.90 D Glucose 143 H 118 H Urinalysis 10/17/20 14:11 Urine Color Yellow Urine Appearance Clear Urine pH 5.0 Ur Specific Hundred 1.023 Urine Protein Negative Urine Glucose (UA) 3+ H Urine Ketones Trace H Urine Blood Negative Urine Nitrite Positive A Urine Bilirubin Negative Microbiology 10/17/20 14:11 Urine,Clean Catch Urine Culture - Preliminary Escherichia coli 10/17/20 13:15 Blood Aerobic Blood Culture - Pending 10/17/20 13:15 Blood Anaerobic Blood Culture - Pending 10/17/20 13:21 Blood Aerobic Blood Culture - Pending 10/17/20 13:21 Blood Anaerobic Blood Culture - Pending Hospital Course (1) Hypotension: Suspect due to dehydration related to limited oral intake and diarrhea, Patient does not have a UTI - Will give IVF bolus before DC -No significant diarrhea as of yesterday -DM Diet on DC (2) SHRADDHA (acute kidney injury): Suspect related to dehydration - see #1. Baseline creatinine around 1 - creatinine today 0.9 - Continue intravenous hydration and was advised to drink more fluid (3) COVID-19: Suspect COVID as cause of symptoms for past week - not currently hypoxic -Presented with GI symptoms and did not have any cough and/or shortness of breath -Saturating normally on room air and does not have any significant chest findings on examination -Does not qualify for any remdesivir and/or dexamethasone (4) Type 2 diabetes mellitus: Resume home regimen on DC (5) Essential hypertension: Hold anti-hypertensives until BP improves, monitor BP and if rises above 135 resume BP meds, but hold for now (6) Dyslipidemia: - Continue atorvastatin DC home today, no abx ROS-No Headache, No Visual Changes, No Nausea, No Vomiting, No Fever, No Chills, No Neck Pain or Stiffness, No Chest Pain, No Palpitations, No SOB, No WASHBURN, No Cough, No Sputum, No Wheezing, No Abdominal Pain, No Diarrhea, No Hematemesis, No Hemoptysis, No Unexpected Weight Loss, No Flank pain, No Melena, No Hematochezia, No Frequency, No Urgency, No Burning, No Hematuria, No Rashes, No Diaphoresis. Appetite is Normal Physical Exam Gen-AAO x 3, NAD, Afebrile Head-NCAT, EOMI, PERRLA, Anicteric Sclera, No Posterior Pharyngeal Erythema Neck-Supple, No JVD, No Thyromegaly, No Masses, No LAD, No Bruits Lungs-Clear to Auscultation Bilaterally, No Rales, No Rhonchi, No Wheezing, No Crepitus Chest-No S4, +S1, +S2, No S3, No Murmurs, No Rubs, No Gallops, No Ectopy Abdomen-Soft, Bowel Sounds Present, Non Tender, Non Distended, No Hepatomegaly, No Splenomegaly, No Palpable Masses, No Rebound, No Rigidity, No Guarding Musculoskeletal-Full Range of Motion Bilaterally, No CVAT Extremities-No Cyanosis, No Clubbing, No Edema Nuero-Cranial Nerves II-XII grossly intact, Motor WNL, DTRs WNL, Strength WNL, Non Focal Psych-Normal Mood Total Time Total Time Spent Total Time Spent (In Minutes): 45 mins Total Time Includes: Examination of the Patient, Discharge Planning, Medication Reconciliation and Communication With Other Providers Discharge Plan Discharge Items Patient Disposition: Home - Self-Care Reason For Visit: COVID, HYPOTENSION Discharge Diagnosis: (1) Hypotension: (2) SHRADDHA (acute kidney injury): (3) COVID-19: (4) Type 2 diabetes mellitus: (5) Essential hypertension: (6) Dyslipidemia: Condition on Discharge: Good Health Concerns: Adequate fluid intake Activity: Resume your previous activity Lifting: Gradually increase as tolerated Bathing: No limitations Sexual Activity: When tolerated Exercise/Sports: Gradually increase as tolerated Driving/Machine Use: No limitations Weightbearing: Full weightbearing Non-emergency contact: Primary Care Provider Call non-emergency contact if: you have any medication questions Follow-up/Referrals: Сергей Mcdowell DO [Primary Care Provider] - Diet: Carb Consistent or DM2 and Heart Healthy Addtl Attending Provider Instructions: Keep up your fluid intake, Take Pepto Bismal OTC for Diarrhea, Monitor Blood Pressure at home if it gets above 135 resume your BP meds Pending Studies at Discharge: No Stand-Alone Forms: My [facility], Smoking Cessation Medications and DC Order Prescriptions: Continued atorvastatin 80 mg tablet 80 mg PO DAILY RF: 0 metformin 500 mg tablet extended release 24 hr 1,000 mg PO BID RF: 0 aspirin [Aspirin Low Dose] 81 mg Tablet,Delayed Release (Dr/Ec) 81 mg PO DAILY RF: 0 Vitamin D2 1,000 unit Capsule 1,000 unit PO DAILY RF: 0 Ocuvite Adult 50 Plus 250-5-1 mg Capsule 1 cap PO DAILY RF: 0 Jardiance 25 mg Tablet 25 mg PO DAILY RF: 0 cyanocobalamin (vitamin B-12) 1,000 mcg Capsule 1,000 mcg PO DAILY RF: 0 Discontinued atenolol 25 mg tablet 25 mg PO DAILY RF: 0 lisinopril-hydrochlorothiazide 10-12.5 mg tablet 1 tab PO DAILY RF: 0 Discharge Orders: Discharge Order (Routine); Ordered 10/18/20 Ordered By: Kade Pichardo/Other Patient Handouts: 2019-nCoV, COVID-19 Plasma Donation, Acute Kidney Failure Dc Admission Data Admit Date/Time: 10/17/20 17:50 Attending Provider: Kade Rodas Admit Provider: Edna Jameson Primary Care Provider: Сергей Mcdowell Other Providers: Edna Jameson
[2020-10-18] MEDS: INSULIN ASPART 100 UNITS/ML 3 ML PEN SC SCH (08:42)
[2020-10-18] MEDS ORDERED: ASPIRIN 81 MG ECTAB PO SCH (09:00)
[2020-10-18] MEDS ORDERED: ATORVASTATIN 40 MG TAB PO SCH (09:00)
[2020-10-18] MEDS ORDERED: CHOLECALCIFEROL 1,000 UNITS 25 MCG TAB PO SCH (09:00)
[2020-10-18] MEDS ORDERED: cefTRIAXone SODIUM 2,000 MG in DEXTROSE 5% 50 ML IV SCH (18:00)
== END 2020-10-18 11:02 | disposition home or self-care (01) | DRG 178 ==
LOC: ED 11:02 → SUATTDRO 17:50 → 2N 17:50